=== PATIENT | female | born 1965 | race Caucasian/White ===

== ENCOUNTER 2023-06-20 22:44 | Emergency (ER) | payer OTHER, MEDICAID ==
[~2023-06-20] VITALS: Ht 152.4 cm; Wt 80.3 kg
[2023-06-20 23:47] VITALS: BP 126/72; PULSE 98; RESP 20; TEMP 97.2; O2SAT 98
[2023-06-21 00:44] VITALS: O2SAT 98
[2023-06-21 02:02] VITALS: BP 122/60; PULSE 63; RESP 17; O2SAT 98
== END 2023-06-21 02:02 | disposition home or self-care (01) ==
LOC: MED 22:44
DX: S06.0X0A Concussion without loss of consciousness, initial encounter (principal); W01.198A Fall on same level from slipping, tripping and stumbling with subsequent striking against other object, initial encounter; Y93.89 Activity, other specified; Y92.89 Other specified places as the place of occurrence of the external cause; Y99.8 Other external cause status
CPT/HCPCS: 99281